=== PATIENT | female | born 1960 | race African-American/Black ===

== ENCOUNTER → 2016-11-06 | Outpatient (CLI) | payer OTHER ==
[~2016-11-06] MED LIST: CRESTOR40 MG PO; ESOM40CA PO; FLUT16SP2 NS; METF500T4 PO; NISO8.5T3 PO; POTA8TAB6 PO; TRIA1TAB5 PO
--- NOTE | 2016-11-06 15:54 | KCIC ---
Examination: Frontal views of the bilateral knees standing COMPARISON: None available HISTORY: History of bilateral knee pain, degenerative changes. FINDINGS: There is severe joint space loss identified in the medial, lateral compartments of the knee joint with large osteophyte formation the medial, lateral, patellofemoral compartments. IMPRESSION: Severe tricompartmental degenerative changes. Electronically signed by: Jose Cook MD (11/06/2016 3:51 PM) [id number]
== END | disposition home or self-care (01) ==
LOC: KCIC 14:38
PROVIDERS: ATTEND Physical Medicine & Rehabilitation
DX: M17.0 Bilateral primary osteoarthritis of knee (principal)
CPT/HCPCS: 73565

== ENCOUNTER → 2016-11-07 | Outpatient (CLI) | payer BC, OTHER ==
--- NOTE | 2016-11-08 11:29 | KCIC ---
Bilateral digital screening mammograms: Reason for examination: Routine screening. No previous examinations for comparison. The skin and nipples show no abnormalities. No abnormal axillary lymph nodes are seen. The breast parenchyma shows scattered fibroglandular density. (Breast density: Category B.) There is some asymmetric parenchyma in the upper outer quadrant of the right breast. There are no dominant masses, suspicious calcifications or architectural distortions. Impression: No evidence of malignancy. Recommend routine screening. BI-RADS Category 2: Benign. "Our facility is accredited by the [employer] Mammography [employer]." This patient's information has been entered into a reminder system for the patient to be notified with the results of her examination and a target date for the next mammogram. Electronically signed by: Raiza Menezes MD (11/08/2016 11:26 AM) [id number]
== END | disposition home or self-care (01) ==
LOC: KCIC MAMMO 14:48
PROVIDERS: ATTEND Internal Medicine
DX: Z12.31 Encounter for screening mammogram for malignant neoplasm of breast (principal)
CPT/HCPCS: G0202; 77067

== ENCOUNTER → 2020-11-07 | Outpatient (CLI) | payer BC ==
[~2020-11-07] MED LIST changes: +METF500T16 PO; -METF500T4 PO
--- NOTE | 2020-11-07 16:33 | KCIC ---
Bilateral digital screening mammograms with 3-D tomosynthesis: Reason for examination: Routine screening. Comparison is made to previous study dated 11/07/2016. Bilateral mammograms in CC and oblique projections were obtained with 2-D imaging and 3-D tomosynthes is imaging on a [employer] unit and reviewed on the workstation. Interpretation was made with the benefit of CAD. The skin and nipples show no abnormalities. No abnormal axillary lymph nodes are seen. The breast par enchyma shows scattered fibroglandular density. (Breast density: Category B.) There are no dominant m asses, suspicious calcifications or architectural distortion. A few benign calcifications are seen. Impression: No evidence of malignancy. Recommend routine screening. BI-RAD Category 2: Benign. "Our facility is accredited by the [employer] Mammography [employer]." This patient's information has been entered into a reminder system for the patient to be notified wit h the results of her examination and a target date for the next mammogram. Electronically signed by: Raiza Menezes MD (11/07/2020 4:30 PM) [id number]
--- NOTE | 2020-11-07 16:45 | KCIC ---
Bone densitometry. Clinical history: 60-year-old female with known estrogen deficiency. Lumbar spine: L1-L4. The technical acquisition is adequate. The bone mineral density across the aggregate of L1-L4 is 1.41 9 gm/cm2. This corresponds to a T-score of 3.4 which is consistent with normal bone mineral density. At this bone density level, fracture risk is normal. Hip: Left. The technical acquisition is adequate. Only the left total hip bone mineral density is calculated, an d it is 1.130 gm/cm2. This corresponds to a T-score of 1.5 which is consistent with normal bone deportation examiner al density. At this bone density level, fracture risk is normal. Impression: 1. Normal bone mineral density of the lumbar spine and left hip. Note: T-Score definitions established by the [employer] Organization: 1. Normal: T-score is -1.0 or above. 2. Osteopenia: T-score is between -1.0 and -2.5. 3. Osteoporosis: T-score is -2.5 or below. For patients in whom the T-Score does not apply, a Z-Score below -2.0 is consistent with abnormal bon e mineral density. Electronically signed by: Len Dominguez MD (11/07/2020 4:43 PM) [id number]
== END ==
LOC: KCIC MAMMO 09:29
PROVIDERS: ATTEND Internal Medicine
DX: Z12.31 Encounter for screening mammogram for malignant neoplasm of breast (principal); E28.39 Other primary ovarian failure
CPT/HCPCS: 77067; 77080